=== PATIENT | female | born 1980 | race Caucasian/White ===

== ENCOUNTER 2018-01-27 11:58 | Inpatient (IN) | payer BC ==
[~2018-01-27] VITALS: Ht 172.7 cm; Wt 90.0 kg
--- NOTE | ~2018-01-27 | OR ---
[facility] [address] [place], [place] [address] Draft DATE OF OPERATION: 02/28/2018 SURGEON: Vince Pearl MD MOBILE HEAV[employer] EQUIPMENT OPERATOR: Dr. Caraballo. PREOPERATIVE DIAGNOSIS: Term , previous section. POSTOPERATIVE DIAGNOSIS: Term , previous section, delivered. PROCEDURE PERFORMED: Repeat section with lysis of adhesions. ANESTHESIA: Spinal. ESTIMATED BLOOD LOSS: 700 mL. DRAINS: Mitchell catheter. INDICATIONS AND FINDINGS: The patient is a 37-year-old female 3, para 1, SAB 1, admitted at 39.1 weeks for repeat section. Her has been uncomplicated. At the time of surgery, she was delivered of a little girl from the ROT position via lower segment transverse uterine incision with Apgars of 9 and 9 and weight of 9 pounds and 4 ounces. The uterus had adhesions to the anterior abdominal wall, but otherwise the pelvis was normal. DESCRIPTION OF PROCEDURE: The patient was prepped and draped in the supine position. A Pfannenstiel skin incision was made through the previous scar and carried down through the fascia. The incision was extended laterally. The inferior and superior fascial flaps were then created. The muscles were bluntly divided and the peritoneum opened sharply and the incision was extended superiorly and inferiorly. At this point, there was clear that there were adhesions of the anterior uterus, the anterior abdominal wall, which would interfere with placement of the El retractor. These adhesions were taken down with the PATIENT NAME: FROY VELASQUEZ OPERATIVE REPORT DATE OF : 84 REPORT #: [id number] PHYSICIAN: VINCE PEARL MD PCP: NO PRIMARY CARE PHYSICIAN REPORT IS CONFIDENTIAL AND NOT TO BE RELEASED WITHOUT AUTHORIZATION [facility] [address] [place], [place] [address] Draft cautery. When the uterus was freed, the El retractor could then be placed. The uterine wall was then scored and entered at the upper aspect of the peritoneal reflection. The baby was delivered with the above findings and handed off to the pediatric staff in attendance. The placenta was removed manually and the uterus explored with a lap tape assuring no remaining fragments. The edges of the incision were identified and grasped with T clamps and the uterus was closed in 2 layers with #0 Monocryl. First the 1st layer was running locking stitch and second was a vertical imbricating stitch. An additional [id number]-[id number] was required near the left angle for control of bleeding. Following this, the abdomen was copiously irrigated and inspected. The incision appeared to be hemostatic. The uterus delivered through the incision and the anterior wall examined, and where the adhesions were taken down were cauterized and reinspected and seen to be hemostatic. Following this, the uterus was replaced and the retractor removed. The peritoneum was identified and an ACell graft was laid over the uterine incision to aid in healing. The peritoneum was then closed in a running suture of 3-0 Vicryl. The muscles were brought together with interrupted sutures of 0 Vicryl. Bleeding points were controlled on the muscle wall. This layer was then irrigated and appeared to be hemostatic. ACell powder was sprinkled over the muscle. The fascia was then closed from each angle to the midline with a running suture of 0 Vicryl. The subcutaneous layer was irrigated and bleeding points controlled with cautery. The skin was closed with trever. All sponge and needle counts were correct. The patient tolerated the procedure well and was taken to the recovery room in good condition. Vince Pearl MD PJW/MODL /[id number] cc: Randell Caraballo MD Copies: RANDELL CARABALLO MD ~ PATIENT NAME: FROY VELASQUEZ OPERATIVE REPORT DATE OF : 84 REPORT #: [id number] PHYSICIAN: VINCE PEARL MD PCP: NO PRIMARY CARE PHYSICIAN REPORT IS CONFIDENTIAL AND NOT TO BE RELEASED WITHOUT AUTHORIZATION
[~2018-01-27 11:58] MED LIST: DOXYCYCLINE HY100 M3 PO; MELATONIN1 MG PO; PRENATAL MULTI1 EAC3 PO
--- NOTE | 2018-02-28 13:18 | NUR ---
02/28/18 1318 Mery Bowles 1255- PT ARRIVES TO ROOM 104 WITH LR AND PITOCIN INFUSING. IV WNL. PT HAS BABY TO BREAST. PT REPORTS NO NAUSEA, DIZZINESS, SOB, OR PAIN. 1300- PT'S HEAD OF BED SLIGHTLY ELEVATED FOR ASSISTANCE IN BREAST FEEDING. PT TOLERATING WELL. REPORTS NO NAUSEA, DIZZINESS, HEADACHE, OR PAIN. 1305- BABY TO BREAST. PT CONTINUES TO REPORT NO NAUSEA, HEADACHE, OR PAIN.
--- NOTE | 2018-03-01 07:52 | PR ---
[facility] [address] [facility] [place], [place] [address] Signed PP Progress Notes Datetime Report Generated by CPJanet: 03/01/2018 07:51 SUBJECTIVE: [id number] Pain: Within normal limits Nausea/Vomiting: Denies Vital Signs: [id number] Vital Signs: Reviewed; Within Normal Limits EXAM: [id number] Cardiovascular: Normal Respiratory: Normal Abdomen/Uterus: Abnormal Lochia: Normal Vulva/Perineum: Not Done Breasts: Not Done CVA Tenderness: Not Done Extremities: Normal Incision: Normal Progress: Normal Exam Comments: Abdomen with active BS. Fundus firm, NT @ U-1. H/H 11.9/35.3, WBC 12.5, plat 121k IMPRESSION/PLAN/PROCEDURES: [id number] Impression: Normal progression Other Plans: Ambulate, shower, D/C omalley Progress Notes: Doing well. Will increase ambulation and D/C omalley. Signing Physician: Sabina Pearl MD Copies: ~ *Electronically Signed* 03/01/18 0751 SABINA PEARL MD PATIENT NAME: EVAFROY LOYA PROGRESS NOTE DATE OF : 84 PHYSICIAN: SABINA PEARL MD RPT #: [id number] REPORT IS CONFIDENTIAL AND NOT TO BE RELEASED WITHOUT AUTHORIZATION
== END 2018-03-02 13:05 | disposition home or self-care (01) | DRG 766 ==
LOC: FBC 02-28 09:03
PROVIDERS: ADMIT Obstetrics & Gynecology
PROC: 10D00Z1 Extraction of Products of Conception, Low, Open Approach (ICD-10-PCS; principal; 2018-02-28 12:00)
DX: O34.211 Maternal care for low transverse scar from previous cesarean delivery (principal); N85.8 Other specified noninflammatory disorders of uterus; O75.82 Onset (spontaneous) of labor after 37 completed weeks of gestation but before 39 completed weeks gestation, with delivery by (planned) cesarean section; Z3A.39 39 weeks gestation of pregnancy; Z37.0 Single live birth
CPT/HCPCS: 01961; 36415; 85027; C1763; J0690; J2274; J2405; J2590; J3010; J7120

== ENCOUNTER 2020-03-07 13:36 | Inpatient (IN) | payer OTHER ==
[~2020-03-07] VITALS: Ht 172.7 cm; Wt 100.7 kg
--- NOTE | 2020-03-11 08:40 | NUR ---
03/11/20 0840 Melanie,Berenice 0822 PT ARRIVED TO ROOM 103, VSS. IV INFUSING LR WITH 30 PIT, SITE WNL PT DENIES PAIN AND NAUSEA. HOB INCREASED SLIGHTLY. 0825 BABY TO CHEST AND PT CONTINUES TO DENIES CONCERNS.
--- NOTE | 2020-03-12 08:03 | PR ---
[facility] [address] [facility] [place], [place] [address] Signed PP Progress Notes Datetime Report Generated by CPN: 03/12/2020 08:02 SUBJECTIVE: [id number] Pain: Within Normal Limits Nausea/Vomiting: Denies Flatus: No Vital Signs: [id number] Vital Signs: Reviewed; Within Normal Limits EXAM: Ongoing Cardiovascular: Normal Respiratory: Normal Abdomen/Uterus: Abnormal Lochia: Normal Vulva/Perineum: Not Done Breasts: Not Done CVA Tenderness: Not Done Extremities: Normal Incision: Normal Progress: Normal Exam Comments: Abdomen with active BS. Fundus firm, NT @ U-1. H/H 11.5/33.6, WBC 10.8, plat 126k IMPRESSION/PLAN/PROCEDURES: [id number] Impression: Normal Progression Other Plans: ambulate, shower Progress Notes: Doing well. Will increase ambulation and shower. Signing Physician: Sabina Pearl MD Copies: ~ *Electronically Signed* 03/12/20 08 SABINA PEARL MD PATIENT NAME: FROY VELASQUEZ PROGRESS NOTE DATE OF : 84 PHYSICIAN: SABINA PEARL MD RPT #: [id number] REPORT IS CONFIDENTIAL AND NOT TO BE RELEASED WITHOUT AUTHORIZATION
--- NOTE | 2020-03-13 08:24 | PR ---
[facility] [address] [facility] [place], [place] [address] Signed PP Progress Notes Datetime Report Generated by CPN: 03/13/2020 08:24 SUBJECTIVE: [id number] Pain: Within Normal Limits Nausea/Vomiting: Denies Flatus: Yes Vital Signs: [id number] Vital Signs: Reviewed; Within Normal Limits EXAM: Met Cardiovascular: Not Done Respiratory: Not Done Abdomen/Uterus: Abnormal Lochia: Normal Vulva/Perineum: Not Done Breasts: Not Done CVA Tenderness: Not Done Extremities: Normal Incision: Normal Progress: Normal Exam Comments: Abdomen with active BS. Fundus firm, NT @ U-1. Incision intact with slight spotting on dressing only. IMPRESSION/PLAN/PROCEDURES: [id number] Impression: Normal Progression Plan: Discharge Other Plans: ambulate, shower Procedures: None Progress Notes: Doing well overall. She has had some discharge off and on from her incision though I have not seen any significant amount. I will leave trever in til Mon and remove them in the office. Signing Physician: Sabina Pearl MD Copies: ~ *Electronically Signed* 03/13/20 08 SABINA PEARL MD PATIENT NAME: FROY VELASQUEZ PROGRESS NOTE DATE OF : 84 PHYSICIAN: SABINA PEARL MD RPT #: [id number] REPORT IS CONFIDENTIAL AND NOT TO BE RELEASED WITHOUT AUTHORIZATION
--- NOTE | 2020-03-13 19:43 | OR ---
[facility] [address] [place], [place] [address] Signed DATE OF OPERATION: 03/11/2020 SURGEON: Sabina Pearl MD MEDICAL STAFFING COORDINATOR: Randell Caraballo MD PREOPERATIVE DIAGNOSIS: Term , previous section x2. POSTOPERATIVE DIAGNOSIS: Term , previous section x2, delivered. PROCEDURE: Repeat section with low segment transverse uterine incision. ANESTHESIA: Spinal. ESTIMATED BLOOD LOSS: 600 mL. DRAINS: Mitchell catheter. INDICATIONS AND FINDINGS: The patient is a 39-year-old female, 5, para 2, AB 2, admitted at 39 and 1/7th weeks for repeat section. Her has been remarkable for AMA for which she declined any genetic testing. She has also had excess weight gain. She had 1st trimester bleeding which resolved. At the time of surgery, she was delivered of a little boy via lower segment transverse uterine incision from the ROT position with Apgars of 9 and 9 and weight of 9 pounds 3 ounces. The lower uterine segment was extremely thin. The uterus, tubes, ovaries, and placenta otherwise were normal. Also noted was the absence of muscle on her right side. DESCRIPTION OF PROCEDURE: The patient was prepped and draped in the supine position. A repeat Pfannenstiel skin incision was made and carried down through the fascia and the incision extended laterally. The inferior and superior fascial flaps were created. There was significant scarring. The peritoneum was opened sharply and the incision extended superiorly and Electronically Signed By: SABINA PEARL MD 03/13/201942 PATIENT NAME: FROY VELASQUEZ OPERATIVE REPORT DATE OF : 84 REPORT #: [id number] PHYSICIAN: SABINA PEARL MD PCP: SABINA PEARL MD REPORT IS CONFIDENTIAL AND NOT TO BE RELEASED WITHOUT AUTHORIZATION [facility] [address] [place], [place] [address] Signed inferiorly as well as bluntly. Following this, there was noted to be some adhesions of the bladder flap over the anterior uterine wall. The El retractor was placed and the uterine wall was scored and entered at the upper aspect of the peritoneal reflection and the baby delivered with the above findings and handed off to the pediatric staff in attendance. The placenta was removed manually. The uterus was explored with a lap tape assuring no remaining fragments. The edges of the incision were grasped and identified and the uterus was closed in 2 layers using 0 Monocryl. The first layer was a running locking stitch and the second was a horizontal imbricating stitch. Additional qmevjj-[id number]-eojnz was required in the mid section for control of bleeding. The abdomen was then copiously irrigated and inspected and hemostasis was rendered with cautery over the peritoneal adhesions. Following this, the retractor was removed and the peritoneum identified. An ACell graft was laid over the lower segment to aid in healing. The peritoneum was then closed. The upper aspect was closed vertically with a running suture of 3-0 Vicryl. The remainder was closed transversely as there was quite a tear into her left side. This was also repaired with a running suture of 3-0 Vicryl. Following this, there was some muscle seen on the patient's left side, but none on the right. The bleeding points on the left hand muscle were controlled with cautery and a few stitches of 0 Vicryl. This area was irrigated and inspected and good hemostasis was noted. ACell powder was sprinkled over the tiny bit of muscle that was visible. The fascia was then closed from each angle to the midline with a running suture of 0 Vicryl. The subcutaneous tissue was irrigated, inspected and bleeding points controlled with cautery. The skin edges were reapproximated with interrupted sutures of 3-0 Vicryl. The skin was closed with trever. All sponge and needle counts were correct. She tolerated the procedure well and was taken to the recovery room in good condition. Sabina Pearl MD PJW/MODL /[id number] cc: Randell Caraballo MD Copies: RANDELL CARABALLO MD Electronically Signed By: SABINA PEARL MD 03/13/20 1943 PATIENT NAME: FROY VELASQUEZ OPERATIVE REPORT DATE OF : 84 REPORT #: [id number] PHYSICIAN: SABINA PEARL MD PCP: SABINA PEARL MD REPORT IS CONFIDENTIAL AND NOT TO BE RELEASED WITHOUT AUTHORIZATION [address] [address] Signed ~ Electronically Signed By: SABINA PEARL MD 03/13/20 1943 PATIENT NAME: FROY VELASQUEZ OPERATIVE REPORT DATE OF : 84 REPORT #: [id number] PHYSICIAN: SABINA PEARL MD PCP: SABINA PEARL MD REPORT IS CONFIDENTIAL AND NOT TO BE RELEASED WITHOUT AUTHORIZATION
== END 2020-03-13 10:00 | disposition home or self-care (01) | DRG 788 ==
LOC: FBC 03-11 05:01
PROVIDERS: ADMIT Obstetrics & Gynecology
PROC: 10D00Z1 Extraction of Products of Conception, Low, Open Approach (ICD-10-PCS; principal; 2020-03-11 06:45)
DX: O34.211 Maternal care for low transverse scar from previous cesarean delivery (principal); N85.8 Other specified noninflammatory disorders of uterus; Z37.0 Single live birth; O32.2XX0 Maternal care for transverse and oblique lie, not applicable or unspecified; O26.03 Excessive weight gain in pregnancy, third trimester; Z3A.39 39 weeks gestation of pregnancy
CPT/HCPCS: 01961; 36415; 85027; A9270; J0690; J2001; J2274; J2300; J2405; J2590; J7121